=== PATIENT | female | born 1990 | race Asian ===

== ENCOUNTER 2019-09-08 22:43 | Inpatient (IN) | payer OTHER ==
[2019-09-09] MEDS ORDERED: ceFOXitin 2 GM IVPREMIX* 2 GM/50 ML BAG ONE (00:11)
[2019-09-09] MEDS ORDERED: Sodium Citrate/Citric Acid* 15 ML UDC ONE (00:11)
[2019-09-09] MEDS ORDERED: fentaNYL* 50 MCG/ML 2 ML VIAL (100 MCG VIAL) ONE (00:13)
[2019-09-09] MEDS ORDERED: Morphine PF AMP (0.5MG/ML)* 5 MG/10 ML AMP ONE (00:13)
[2019-09-09] MEDS ORDERED: EPHEDrine (Pressors)* 50 MG/ML VIAL ONE (00:27)
[2019-09-09] MEDS ORDERED: OXYTOCIN* 10 UNITS/ML 1 ML VIAL ONE ×2 (00:30)
[2019-09-09] MEDS ORDERED: Ondansetron INJ* 2 MG/ML VIAL ONE ×2 (00:50→01:30)
[2019-09-09] MEDS ORDERED: Metoclopramide IV* 5 MG/ML 2 ML VIAL ONE (01:30)
[2019-09-09] MEDS ORDERED: Acetaminophen IV 1GM/100ML * 1,000 MG/100 ML VIAL IVPB ONE (01:41)
[2019-09-09] MEDS ORDERED: Naloxone* 0.4 MG/ML 1 ML VIAL IV PRN (01:41)
[2019-09-09] MEDS: Ketorolac INJ* 30 MG/ML 1 ML VIAL IV PRN ×3 (02:35→15:45)
[2019-09-09] MEDS ORDERED: Witch Hazel PAD* JAR TOPICAL PRN (02:50)
[2019-09-09] MEDS ORDERED: Methylergonovine INJ* 0.2 MG/ML 1ML AMP IM ONE (02:50)
[2019-09-09] MEDS ORDERED: oxyCODONE TAB* 5 MG TAB PO PRN ×2 (02:50)
[2019-09-09] MEDS ORDERED: Lactated Ringers 1000 ML Bag* 1,000 ML IV SCH (03:00)
--- NOTE | 2019-09-09 03:14 | HP ---
General Information - Reason for Visit Pt presents at 39+6 with ctx about every 5-7 min that are getting more uncomfortable. Reports ctx for several hours last night that resolved in the AM. uncomplicated. - General Information Maternal Age: 28 Grav: 1 Para: 0 SAB: 0 IEA: 0 Estimated Due Date: 09/09/19 Determined By: LMP Maternal Blood Type and Rh: A Positive - Results this Serology/RPR Result: Non-Reactive Rubella Result: Immune HBsAg Result: Negative HIV Result: Negative GBS Culture Result: Positive Past Medical History Delivery History: See Records Pertinent Past Medical History: See Records Pertinent Past Surgical History: None Pertinent Family History: Non-Contributory - Antepartal Records Antepartal Records: Reviewed, Uncomplicated Review of Systems Constitutional: Uncomfortable CV Complaint: No Respiratory: Shortness of Breath: No Gastrointestinal: No Nausea/Vomiting Genitourinary: No Bleeding, No Leaking Fluid Musculoskeletal: Contractions Neurological: No Headache Movement: Normal Exam Allergies/Adverse Reactions: Allergies No Known Allergies Allergy (Verified 09/08/19 23:19) normal, afebrile - Measurements Height: 5 ft 6 in Weight: 150 lb Weight in lbs: [id number] Body Mass Index (BMI): 24.2 Pre- Weight: 114 lb 10.246 oz Weight Gained This : 35.359 lbs and 0.010 ozs - Exam Breast: Breast Exam Deferred Heart: Normal Rhythm/Heart Sounds HEENT: No Significant Findings Lungs: Clear Bilaterally - Abdominal Exam Abdomen Exam: Non-Tender, Fundal Height Consistent with Dates - Ultrasound/Biophysical Profile Ultrasound Status: Bedside Exam Targeted Exam Findings Cervical Exam: 2cm Effacement: 60% Station: -2 Presenting Part: Vertex Membrane Status: Intact EFM Findings - External Monitor Findings Baseline Heart Rate: 145 External Monitor Findings: Accelerations Present, Variability Moderate, Variability Minimal Contractions: Regular, Moderate Contraction Frequency: q5 Assessment/Plan - Assessment Pt presented at about 2300 with moderate ctx. FHT about 145 bpm with minimal variability which improved to moderate with accels over the next half hour. No decels at that time. At 2346, FHR had sudden decline into the 60s and then nurses were unable to locate the FHR. I was called and immediately located the heart rate in the 60s with ultrasound. Decision was made to proceed with an urgent , however pt did not even have IV access yet. Anesthesia, NICU and surgical elastic knitter hand frame were all called while IV was being placed. consent quickly discussed and signed. FHR slowly recovered into the 100s after about 15 min, just before she was brought to the OR. Initially planned to use general anesthesia, but in OR, FHR had recovered to the 150s with moderate variability. Fetus allowed to recover in utero and spinal placed quickly by anesthesia. - Obstetrical Risk Factors Obstetrical Risk Factors: GBS Positive - Plan Plan: Expedite C/S Delivery - Date/Time of Admission Date of Admission: 09/08/19 Time of Admission: 23:45
[2019-09-09] MEDS ORDERED: Ferrous Gluconate TAB* 324 MG TAB PO SCH (09:00)
[2019-09-09] MEDS: Simethicone TAB* 80 MG TAB.CHEW PO SCH ×4 (10:10→21:00)
[2019-09-09] MEDS: Docusate CAP* 100 MG PO SCH ×3 (10:10→21:00)
--- NOTE | 2019-09-09 10:13 | OP ---
DATE OF OPERATION: 09/09/19 - ROOM #ICU-102 DATE OF : 88 SURGEON: Shamar Cormier MD EX CHEF: Jennifer Ayers MD ANESTHESIA: Spinal. PRE-OP DIAGNOSES: Forty weeks gestation in early labor with prolonged heart rate deceleration. POST-OP DIAGNOSES: Forty weeks gestation in early labor with prolonged heart rate deceleration. OPERATIVE PROCEDURE: Primary low-transverse section. ESTIMATED BLOOD LOSS: 700 cc. URINE OUTPUT: 700 cc. IV FLUIDS: 1500 cc lactated Ringer's. MATERIALS TO LAB: Cord blood and cord gases. INDICATIONS: This patient is a 28-year-old 1, para 0, who presented just before midnight at 39 plus 6 weeks gestation, reporting contractions about every 5 minutes, which were moderately strong and persistent for the last 2 hours. Her cervix on presentation was 1 to 2 cm dilated. The heart racing was noted to have minimal to slightly moderate variability initially, however, during observation the heart tracing had a moderate variability and actually had a couple of accelerations. The heart tracing was noted to abruptly decrease to the 60s, at which point the nurses had difficulty finding the heart rate partly because it was so low. I was contacted and when I arrived in the room I immediately did an ultrasound which confirmed that the heart rate was in the 60s. At that point, the patient was only being observed in a triage room, so she did not have IV access. While IV access was being obtained urgently, anesthesia, neonatology, and a surgical garment fitter were called for. The anesthesiologist arrived quickly and the patient was brought to the operating room. Just before being brought back to the operating room the heart racing had been slowly recovering to the 100s. In the OR the heart rate was in the 140s and 150s. Considering it appeared to have recovered, the decision was made to allow the fetus to continue recovering for a little bit longer and also allow the patient to have a spinal anesthetic rather than requiring general anesthesia, which could also be traumatic for the fetus. The patient was briefly counseled in her labor room and consent was signed. FINDINGS: Normal-appearing uterus fallopian tubes and ovaries. Delivery is productive of a 5 pounds 4 ounces female infant with Apgars of 3 and 8. Of note , on entry into the uterine cavity there was scant amniotic fluid present. The placenta appeared to be quite small, but there is no visible adherent clot on the placenta. COMPLICATIONS: None. DESCRIPTION OF PROCEDURE: The risks, benefits, and alternatives were described to the patient and informed consent was obtained. The patient was taken to the operating room with IV running where spinal anesthesia was induced and found to be adequate. The patient was prepped and draped in the normal sterile fashion in the dorsal supine position with leftward tilt. A Pfannenstiel skin incision was made with a scalpel and this was carried down to the underlying fascia sharply. The fascia was then scored in the midline with the scalpel. The incision was extended using Gill scissors. The rectus muscles were dissected off the rectus fascia using blunt and sharp dissection. The rectus muscles were in the midline bluntly. The peritoneum was also entered bluntly. A bladder blade was placed. A bladder flap was created sharply using Metzenbaum scissors. A low transverse uterine incision was made with the scalpel. This was carried down to the amniotic cavity which was productive of clear fluid. The incision was extended with blunt traction. The head was elevated to the level of the incision without difficulty and delivered through the incision. With fundal pressure, the shoulders and body delivered without difficulty. The infant had an excellent tone and cried immediately on delivery. The cord was doubly clamped and cut. The infant was then handed to the awaiting programs director. Cord blood was collected. The placenta then delivered with manual extraction. The uterus was then exteriorized and cleared of all clots and debris. Uterine incision was reapproximated using 0 Polysorb in a running-locked fashion. A second layer of imbricating sutures of 0 Polysorb was also placed with good hemostasis. The posterior cul-de-sac was irrigated with saline. The uterus was then returned to the abdomen, and the incision was reinspected and noted to be hemostatic. The peritoneum was closed with 2-0 chromic in a running fashion. The fascia was closed with 0 Polysorb in a running fashion. Subcutaneous tissues were reapproximated using 2-0 chromic and interrupted sutures. The skin was then closed with 4-0 Monocryl in a subcuticular stitch. Mastisol and Steri-Strips were placed over the incision which was then covered with a sterile bandage. The patient tolerated the procedure well. Sponge, lap, and needle counts were correct x2. [id number]/[facility] #: [id number] [facility] MEDICAL CENTERMaria Luisa
[2019-09-09 13:36] LABS: ABS Lymphocytes 1.4 10^3/ul (1.0-4.8); ABS Monocytes 0.6 10^3/ul (0-0.8); Eosinophil % 0.1 %; Hematocrit 32 % (35-47); Hemoglobin 11.1 g/dL (12.0-16.0); Lymphocyte % 11.8 %; Mean Corpuscular HGB Conc 34 g/dL (31-36); Mean Corpuscular Hemoglobin 34 pg (27-31); Mean Corpuscular Volume 99 fL (80-97); Mean Platelet Volume 8.9 fL (7.4-10.4); Platelet Count 161 10^3/uL (150-450); Red Blood Count 3.26 10^6 /uL (3.70-4.87); Red Cell Distribution Width 14 % (10-15); White Blood Count 12.1 10^3/uL (3.5-10.8)
[2019-09-09] MEDS: Ibuprofen TAB* 600 MG PO SCH (18:00)
[2019-09-10 06:32] LABS: ABS Lymphocytes 1.8 10^3/ul (1.0-4.8); ABS Neutrophils 10.7 10^3/ul (1.5-7.7); Eosinophil % 0.2 %; Hematocrit 30 % (35-47); Hemoglobin 10.2 g/dL (12.0-16.0); Lymphocyte % 13.5 %; Mean Corpuscular HGB Conc 34 g/dL (31-36); Mean Corpuscular Hemoglobin 35 pg (27-31); Mean Corpuscular Volume 101 fL (80-97); Mean Platelet Volume 8.6 fL (7.4-10.4); Platelet Count 153 10^3/uL (150-450); Red Blood Count 2.95 10^6 /uL (3.70-4.87); Red Cell Distribution Width 14 % (10-15); White Blood Count 13.6 10^3/uL (3.5-10.8)
[2019-09-10] MEDS: Ibuprofen TAB* 600 MG PO SCH ×4 (07:10→19:39)
[2019-09-10] MEDS: Docusate CAP* 100 MG PO SCH ×3 (08:22→22:49)
[2019-09-10] MEDS: Simethicone TAB* 80 MG TAB.CHEW PO SCH ×4 (08:22→22:49)
--- NOTE | 2019-09-10 12:29 | PTEDU ---
Patient Name: MICHAEL JONES ROBERT MICHAEL selected video: Never Ever Shake a Baby to view on 09/10/2019 at 12:28:42 PM from [id number]
--- NOTE | 2019-09-10 12:57 | PTEDU ---
Patient Name: MICHAEL JONES ROBERTMICHAEL selected video: BBOB: Nurturing Your Gorgeous &Growing Baby by to view on at 12:56:42 PM [id number]
[2019-09-10] MEDS: Acetaminophen TAB* 325 MG PO PRN ×3 (13:06→22:49)
[2019-09-11] MEDS: Ibuprofen TAB* 600 MG PO SCH ×4 (02:50→21:59)
[2019-09-11] MEDS: Acetaminophen TAB* 325 MG PO PRN (02:50)
--- NOTE | 2019-09-11 08:46 | PN ---
Progress Note - Progress Note Date of Service: 09/11/19 Note: POD#2 s/p pLTCS 2/2 NRFHT remote from delivery. Doing well post operatively. Tolerating regular diet, up and ambulating, pain appropriately controlled. + spontaneous void, + flatus. O: Temp Pulse Resp BP Pulse Ox 98.2 F 69 16 100/66 99 09/10/19 20:09 09/10/19 20:09 09/10/19 20:09 09/10/19 20:09 09/10/19 20:09 AVSS, afebrile, hemodynamically stable Gen: nad, aaox3 CV: RRR Pulm: CTABL Abd: soft, nd, nttp, no rebound, no guarding, FF below the U Incision: c/d/i with sutures and steris Ext: warm, nttp A/P: POD#2 s/p pLTCS at term 2/2 NRFHT, doing well post op: - Continue regular diet, tolerting, + flatus - Pain appropriately controlled, continue PO pain regimen - - continue to support - RH+/RI - Continue routine post care, anticipate discharge home tomorrow
[2019-09-11] MEDS: Docusate CAP* 100 MG PO SCH ×3 (08:54→21:59)
[2019-09-11] MEDS: Simethicone TAB* 80 MG TAB.CHEW PO SCH ×4 (08:54→21:59)
--- NOTE | 2019-09-11 21:02 | PTEDU ---
Patient Name: MICHAEL JONES ROBERTMICHAEL selected video: BBOB: Bonding Through Massage to view on 09/11/2019 at 9:01:25 PM f rom [id number]
--- NOTE | 2019-09-11 21:33 | PTEDU ---
Patient Name: MICHAEL JONES ROBERTMICHAEL selected video: Follow Me Mum: [facility] [place] [facility] to view on 09/11/2019 a t 9:32:42 PM [id number]
[2019-09-12] MEDS: Ibuprofen TAB* 600 MG PO SCH ×2 (04:14→10:25)
[2019-09-12 08:01] VITALS: BP 111/68
[2019-09-12] MEDS: Docusate CAP* 100 MG PO SCH (10:25)
[2019-09-12] MEDS: Simethicone TAB* 80 MG TAB.CHEW PO SCH (10:26)
== END 2019-09-12 15:37 | disposition home or self-care (01) | DRG 788 ==
LOC: MCHOBOUT 22:43 → MCHOB 23:59
PROVIDERS: ADMIT Obstetrics & Gynecology; ATTEND Obstetrics & Gynecology
PROC: 10D00Z1 Extraction of Products of Conception, Low, Open Approach (ICD-10-PCS; principal; 2019-09-09 00:05)
DX: O99.824 Streptococcus B carrier state complicating childbirth (principal); O76 Abnormality in fetal heart rate and rhythm complicating labor and delivery; O77.0 Labor and delivery complicated by meconium in amniotic fluid; Z3A.40 40 weeks gestation of pregnancy; Z37.0 Single live birth
CPT/HCPCS: 36415; 85025; A9270-GY; J0694; J1885; J2210; J2405; J2590; J2765; J3010

== ENCOUNTER 2019-09-19 15:20 | Emergency (ER) | payer OTHER ==
--- NOTE | 2019-09-19 15:32 | ED ---
ED Suture/Wound Check - HPI Summary HPI Summary: 28 year old F presenting to [facility] with a chief complaint of her incision re-opening earlier today after taking off her steri-strips on her own. Patient reports that her vaginal bleeding increased last night. The patient rates the pain 0/10 in severity. Symptoms aggravated by nothing. Symptoms alleviated by nothing. The patient's was on September 08. Patient denies any fever, chills, nausea, or vomiting. She is followed by MADIE Yusuf. Medication list reviewed. Allergy list reviewed. Home Medications Medication Instructions Recorded Confirmed Type Tablet 1 tab PO DAILY 09/08/19 09/19/19 History - History Of Current Complaint Stated Complaint: GENERAL Time Seen by Provider: 09/19/19 15:22 Hx Obtained From: Patient Onset/Duration: Sudden Onset Pain Intensity: 0 Pain Scale Used: 0-10 Numeric - Allergies/Home Medications Allergies/Adverse Reactions: Allergies Allergy/AdvReac Type Severity Reaction Status Date / Time No Known Allergies Allergy Verified 09/19/19 15:22 Home Medications: Home Medications Tablet 1 tab PO DAILY 09/08/19 [History Confirmed 09/19/19] PMH/Surg Hx/FS Hx/Imm Hx Endocrine/Hematology History: Denies: Hx Diabetes Cardiovascular History: Denies: Hx Hypertension - Surgical History Surgical History: Yes Surgery Procedure, Year, and Place: - Social History Alcohol Use: None Substance Use Type: Reports: None Smoking Status (MU): Never Smoked Tobacco Have You Smoked in the Last Year: No Review of Systems Negative: Fever, Chills Negative: Vomiting, Nausea Positive: other - Increased vaginal bleeding Positive: Other - Open incision All Other Systems Reviewed And Are Negative: Yes Physical Exam - Summary Physical Exam Summary: Constitutional: Well-developed, Well-nourished, Alert. (-) Distressed Skin: Warm, Dry HENT: Normocephalic; Atraumatic Eyes: Conjunctiva normal Neck: Musculoskeletal ROM normal neck. (-) JVD, (-) Stridor, (-) Tracheal deviation Cardio: Rhythm regular, rate normal, Heart sounds normal; Intact distal pulses; Radial pulses are 2+ and symmetric. (-) Murmur Pulmonary/Chest wall: Effort normal. (-) Respiratory distress, (-) Wheezes, (-) Rales Abd: Soft, (-) tenderness, (-) Distension, (-) Guarding, (-) Rebound, Pfannenstiel incision is intact outside of 1 cm area where there appears to be fresh blood, obvious surrounding abdominal wall hematoma, no fluctuance or induration, no tenderness to palpation. Musculoskeletal: (-) Edema Lymph: (-) Cervical adenopathy Neuro: Alert, Oriented x3 Psych: Mood and affect Normal Triage Information Reviewed: Yes Vital Signs Reviewed: Yes Procedures - Sedation Patient Received Moderate/Deep Sedation with Procedure: No Diagnostics - Laboratory Result Diagrams: 09/19/19 15:41 09/19/19 15:41 Lab Statement: Any lab studies that have been ordered have been reviewed, and results considered in the medical decision making process. Course/Dx - Course Course Of Treatment: Patient is here with slight dehiscence of her Pfannenstiel incision after removing her Steri-Strips at home today. Patient did have a small abdominal wall hematoma on exam but she was not tender, there is no purulent drainage, and she is overall well-appearing. I do not believe patient' s hematoma is infected. Patient had a CBC performed to evaluate for anemia which showed no change from her baseline. Patient had no active bleeding while in the ED. Patient had Steri-Strips applied to her incision. ANNEALING FURNACE OPERATOR was called and they recommended discharge. - Clinical Impression Provider Diagnoses: Wound dehiscence, Abdominal wall hematoma - Physician Notifications Discussed Care Of Patient With: Jennifer Ayers Time Discussed With Above Provider: 17:00 Instructed by Provider To: Other - Discussed with Dr. Ayers who said that the patient is okay to be discharged. Discharge ED - Sign-Out/Discharge Documenting (check all that apply): Patient Departure - Discharge Plan Condition: Stable Disposition: HOME Patient Education Materials: Wound Dehiscence (ED), Hematoma (ED) Referrals: Shamar Cormier MD [Medical Doctor] - 3 Days Additional Instructions: Follow-up with Dr. Cormier in 1-3 days. Return to the emergency department for any fever, chills, worsening abdominal pain, or any other concerning symptoms. - Billing Disposition and Condition Condition: STABLE Disposition: Home - Attestation Statements Document Initiated by Scribe: Yes Documenting Scribe: Yeimy Spencer Provider For Whom Scribe is Documenting (Include Credential): Ruslan Turner MD Scribe Attestation: I, Yeimy Spencer, scribed for Ruslan Turner MD on 09/19/19 at 1718. Scribe Documentation Reviewed: Yes Provider Attestation: The documentation as recorded by the [email or web address] rivera accurately reflects the service I personally performed and the decisions made by me, Ruslan Turner MD Status of Scribe Document: Viewed
[2019-09-19 15:48] LABS: ABS Basophils 0.1 10^3/ul (0-0.2); ABS Eosinophils 0.1 10^3/ul (0-0.6); ABS Lymphocytes 1.5 10^3/ul (1.0-4.8); ABS Monocytes 0.6 10^3/ul (0-0.8); ABS Neutrophils 2.8 10^3/ul (1.5-7.7); Eosinophil % 1.5 %; Hematocrit 33 % (35-47); Hemoglobin 11.5 g/dL (12.0-16.0); Lymphocyte % 30.6 %; Mean Corpuscular HGB Conc 35 g/dL (31-36); Mean Corpuscular Hemoglobin 34 pg (27-31); Mean Corpuscular Volume 99 fL (80-97); Mean Platelet Volume 6.9 fL (7.4-10.4); Platelet Count 331 10^3/uL (150-450); Red Blood Count 3.37 10^6 /uL (3.70-4.87); Red Cell Distribution Width 14 % (10-15); White Blood Count 5.1 10^3/uL (3.5-10.8)
[2019-09-19 16:08] LABS: BUN/Creatinine Ratio 22.5 (8-20); Calcium 8.9 mg/dL (8.6-10.3); EGFR African American 102.6 (>60); EGFR Non-African American 84.8 (>60); Potassium 3.7 mmol/L (3.5-5.0)
--- OUTSIDE RECORDS SUMMARY | 2019-09-19 16:25 | XMS REPORT | Continuity of Care Document ---
:1990 External Reference #:[id number] Author Name Shamar Cormier MD (transmitted by agent of provider Kera Hernandez) Address [address] [facility] [place] [address] Problems Description No Information Available Social History Type Date Description Comments Sex Unknown Cigarette Use Does Not Smoke Cigarettes ETOH Use Does Not Drink Alcohol Recreational Drug Use Does Not Use Drugs Seat Belt/Car Seat Always uses seat belt Allergies, Adverse Reactions, Alerts Description No Known Drug Allergies Medications Active Medications SIG Qnty Indications Ordering Provider Date 1 by mouth every Unknown Tablets day Calcium 600+D 1 by mouth twice Unknown a day [id number] Tablets Immunizations CPT Code Status Date Vaccine Lot # [id number] Given 08/05/2019 Tetnus, Diptheria Toxoids And Acellular Pertussis, [id number] PT > 7Yrs Old [id number] Given 04/02/2019 Influenza Vaccine Quadrivalent Preser/Antibiotic [id number] Free Im Use Vital Signs Date Vital Result Comment 02/14/2019 8:15am BP Systolic 94 mmHg BP Diastolic 62 mmHg Height 63.75 inches 5'3.75" Weight 116.00 lb BMI (Body Mass Index) 20.1 kg/m2 Last Menstrual Period [id number] Results Test Acquired Date Facility Test Result H/L Range Note Laboratory test 08/19/2019 [facility] Genital For SEE RESULT 1 [place] [address] GRP B Strep BELOW [phone] Only Laboratory test 06/17/2019 [facility] Glucose 1 HR 116 mg/dL Normal 70-160 2 [place] [address] Post Prandial [phone] CBC With No 06/17/2019 [facility] White Blood 8.2 Normal 3.5- 10.8 [place] [address] Count 10^3/uL [phone] Red Blood Count 3.24 10^6/uL Low 3.70-4.87 Hemoglobin 11.2 g/dL Low 12.0-16.0 Hematocrit 32 % Low 35-47 Mean Corpuscular Volume 99 fL High 80-97 Mean Corpuscular Hemoglobin 35 pg High 27-31 Mean Corpuscular HGB Conc 35 g/dL Normal 31-36 Red Cell Distribution Width 13 % Normal 10-15 Platelet Count 215 10^3/uL Normal 150-450 Mean Platelet Volume 8.6 fL Normal 7.4-10.4 Drug Screen 04/30/2019 [facility] Urine None Detected None [place] [address] Hydrocodone [facility] [phone] Screen Urine Oxycodone Screen None Detected None Detect Urine Fentanyl Screen None Detected None Detect Urine Methadone Screen None Detected None Detect Urine Buprenorphine Screen None Detected None Detect Urine Amphetamine Screen None Detected None Detect Urine Barbiturates Screen None Detected None Detect Urine Benzodiazepine Screen None Detected None Detect Urine Cannabinoids Screen None Detected None Detect Urine Cocaine Screen None Detected None Detect Urine Opiates Screen None Detected None Detect Urine Phencyclidine Screen None Detected None Detect 3 Test In Question- Missing Required 04/04/2019 [facility] Comment (SEE NOTE) 4 Info Missing Info: [id number] INTE <SEE NOTE> 5 Comment (SEE NOTE) 6 Laboratory test 04/04/2019 [facility] Enhanced PDF Report SEE IMAGE finding [id number] Urine Drug Comp 20 04/02/2019 [facility] Urine Amphetamine Negative ng/mL 7 [place] [address] [phone] Urine Barbiturates Negative ng/mL 8 Urine Benzodiazepines Negative ng/mL 9 Urine Cocaine Negative ng/mL 10 Urine Phencyclidine Negative ng/mL Cutoff: 25 Urine Tetrahydrocannabinol Negative ng/mL Cutoff: 50 11 Creatinine, Urine 114.8 mg/dL Specific [place] 1.012 pH 6.4 Oxidants Negative 12 Adulterants Comment Normal Codeine, Ur Not Detected ng/mL Cutoff: 25 13 Nejjoiv-6-bpkw-glucuronide, Ur Not Detected ng/mL 14 Morphine, Ur Not Detected ng/mL Cutoff: 25 15 Lqwggdvv-1-hdbj-glucuronide, U Not Detected ng/mL 16 6-monoacetylmorphine, Ur Not Detected ng/mL Cutoff: 25 17 Hydrocodone, Ur Not Detected ng/mL Cutoff: 25 18 Norhydrocodone, Ur Not Detected ng/mL Cutoff: 25 19 Dihydrocodeine, Ur Not Detected ng/mL Cutoff: 25 20 Hydromorphone, Ur Not Detected ng/mL Cutoff: 25 21 Bxvdhytklrdmk0ikppuhxukxmtpjq Not Detected ng/mL 22 Oxycodone, Ur Not Detected ng/mL Cutoff: 25 23 Noroxycodone, Ur Not Detected ng/mL Cutoff: 25 24 Oxymorphone, Ur Not Detected ng/mL Cutoff: 25 25 Zlzbaslitoz-6-hner-glucuronide Not Detected ng/mL 26 Noroxymorphone, Ur Not Detected ng/mL Cutoff: 25 27 Fentanyl, Ur Not Detected ng/mL Cutoff: 2 28 Norfentanyl, Ur Not Detected ng/mL Cutoff: 2 29 Meperidine, Ur Not Detected ng/mL Cutoff: 25 30 Normeperidine, Ur Not Detected ng/mL Cutoff: 25 31 Naloxone, Ur Not Detected ng/mL Cutoff: 25 32 Orokynxi-1-tqvs-glucuronide, U Not Detected ng/mL 33 Methadone, Ur Not Detected ng/mL Cutoff: 25 34 Eddp, Ur Not Detected ng/mL Cutoff: 25 35 Propoxyphene, Ur Not Detected ng/mL Cutoff: 25 36 Norpropoxyphene, Ur Not Detected ng/mL Cutoff: 25 37 Tramadol, Ur Not Detected ng/mL Cutoff: 25 38 O-desmethyltramadol, Ur Not Detected ng/mL Cutoff: 25 39 Tapentadol, Ur Not Detected ng/mL Cutoff: 25 40 N-desmethyltapentadol, Ur Not Detected ng/mL Cutoff: 50 41 Dbuvpcpkep-bxeu-mgftpkgbtrd, U Not Detected ng/mL 42 Buprenorphine, Ur Not Detected ng/mL Cutoff: 5 43 Norbuprenorphine, Ur Not Detected ng/mL Cutoff: 5 44 Norbuprenorphine glucuronide Not Detected ng/mL Cutoff: 20 45 Opioid Interpretation See Comment 46 Serum Integrated Screen, 04/01/2019 [facility] Interpretation: SEE NOTE 47, 48 Part 2([place]) Risk for Ontd <1:5000 Age Risk Down Syndrome 1:780 PALLAVI Down Syndrome Risk <1:5000 <1:270 PALLAVI Trisomy 18 Risk <1:5000 <1:100 Calc'd Gestational Age 17.0 Afp, Serum 41.1 ng/mL Afp MoM 0.92 49 hCG, Serum 30.7 IU/mL hCG MoM 0.83 Estriol, Free 1.82 ng/mL Estriol MoM 1.61 Inhibin A, Dimeric 104 pg/mL Inhibin A MoM 0.54 Dinorah-A 1585.6 ng/mL 50 Dinorah-A MoM 0.88 51 Referring Physician Name CASSANDRA LARA Referring Physician Phone NOT GIVEN Referring Physician Npi [phone] Specimen # from Part 1 [id number] Date of 1990 Collection Date 04/01/2019 Maternal Weight 116 lbs Est'd Date of Delivery 09/09/2019 Mother's Ethnic Origin Insulin Depend Diabetic NO Repeat Specimen NO Number of Fetuses 1 Hx Of Neural Tube Defects NO Cigarette smoker NOT GIVEN 52 Laboratory test finding 04/01/2019 [facility] Enhanced PDF Report SEE IMAGE [id number] 1 SEE RESULT BELOW Name: KARISSA JONES : [address]: Leno Hayes MD Acct: [id number] Unit: [id number] AGE: 28 Location: [facility] Re08/19/19 SEX: F Status: REG REF SPEC: [id number] MARYAM: 08/19/19-[address]: Leno Hayes MD REQ: [id number] RECD: 08/19/198614 STATUS: COMP _ SOURCE: CER/VAG/RE SPDESC: ORDERED: Maura Almeida COMMENTS: [id number] QUERIES: Is Patient Penicillin Allergic? N Is patient penicillin allergic and/or sensitivities needed? N Provider Requisition # [id number] Procedure Result Reported Site Group B Strep Culture Screen Final 08/21/19- 0945 ML Group B Strep Screen Positive Organism 1 STREP GROUP B Susceptibility testing of penicillins and other B-lactams approved by FDA for treatment of Streptococcus pyogenes (Group A Strep) and Streptococcus agalactiae (Group B Strep) is not necessary for clinical purposes and need not be done routinely, since as with vancomycin, resistant strains have not been recognized. (CLSI K873-B82;p.66) Positive isolates will be saved for one week. Please call the Microbiology Laboratory if further susceptibility testing is needed. * [facility] - Main Lab . END OF REPORT DEPARTMENT OF PATHOLOGY, [address] [place] [address] Neville Mccray M.D. Director [facility] # [id number] 2 [id number] The specimen was tested at the listed cutoffs: Drug Class Test level (ng/mL) Hydrocodone 300 Oxycodone 100 Fentanyl 1 Methadone 150 Buprenorphine 5 Amphetamines 500 Barbiturates 200 Benzodiazepines 200 Cocaine 150 Cannabinoids 50 Opiates 300 PCP 25 Specimen was received without chain of custody. Results should be used for medical purposes only. 4 We are unable to complete the test(s) noted below due to missing required information. 5 [id number] INTEGRA PT2([place] Draw Date: 6 To prevent further delays in testing, please fax back your resolution to [phone] or contact us immediately at . NO COLLECTION DATE RECEIVED. WE HAVE USED THE DATE THE SPECIMEN WAS RECEIVED BY THIS LABORATORY THE COLLECTION DATE. IF THIS IS INCORRECT, PLEASE CONTACT CLIENT SERVICES. PHONE NUMBER: [phone] 7 REFERENCE VALUE Cutoff: 500 8 REFERENCE VALUE Cutoff: 200 9 REFERENCE VALUE Cutoff: 100 10 REFERENCE VALUE Cutoff: 150 11 ADDITIONAL INFORMATION This report is intended for use in clinical monitoring or management of patients. It is not intended for use in employment-related testing. Test Performed by: [facility] [address] [place] [address] [place] Certified Technician: Mushtaq Chang M.D. Ph.D.; CLIA# [id number] 12 REFERENCE VALUE Cutoff: 200 mg/L 13 Tylenol 3 14 Metabolite of codeine REFERENCE VALUE Cutoff: 100 15 Shiela Contreras, MS Contin; Also a minor metabolite (10%) of codeine and can be seen in low concentrations (<2,000 ng/mL) with poppy seed ingestion. 16 Metabolite of morphine REFERENCE VALUE Cutoff: 100 17 Metabolite of heroin 18 Lortab, [place], Vicodin; Also a very minor metabolite of codeine and impurity (<1%) of oxycodone. 19 Metabolite of hydrocodone 20 Metabolite of hydrocodone 21 Dilaudid, Exalgo; Also a metabolite of hydrocodone and a minor (<5%) metabolite of morphine. 22 Metabolite of hydromorphone REFERENCE VALUE Cutoff: 100 23 Endocet, Percocet, Oxycontin 24 Metabolite of oxycodone 25 Numorphan, Opana; Also a metabolite of oxycodone. 26 Metabolite of oxymorphone REFERENCE VALUE Cutoff: 100 27 Metabolite of oxymorphone 28 Actiq, Duragesic, Fentora 29 Metabolite of fentanyl 30 Demerol 31 Metabolite of meperidine 32 Narcan 33 Metabolite of naloxone REFERENCE VALUE Cutoff: 100 34 Dolophine 35 Metabolite of methadone 36 Darvon, Darvocet 37 Metabolite of propoxyphene 38 Tradol, Ultram, Ultracet 39 Metabolite of tramadol 40 Nucynta 41 Metabolite of tapentadol 42 Metabolite of tapentadol REFERENCE VALUE Cutoff: 100 43 Buprenex, Suboxone 44 Metabolite of buprenorphine 45 Metabolite of buprenorphine 46 No opioids were detected. The absence of expected drug(s) and/or drug metabolite(s) may indicate non-compliance, altered pharmacokinetics, inappropriate timing of specimen collection relative to drug administration, diluted/adulterated urine, or limitations of testing. ADDITIONAL INFORMATION This test was developed and its performance characteristics determined by [facility] in a manner consistent with CLIA requirements. This test has not been cleared or approved by the U.S. Food and Drug Administration. 47 FASTING: NO 48 SCREEN NEGATIVE FOR OPEN NTD, DOWN SYNDROME AND TRISOMY 18. 49 Reference Range: <2.50 IDD <1.90 TWINS <4.00 TWINS IDD <3.50 TRIPLETS <4.50 50 This test was performed using a kit that has not been cleared or approved by the FDA. The analytical performance characteristics of this test have been [facility]. This test should not be used for diagnosis without confirmation by other medically established means. 51 The Serum Integrated Screen combines DINORAH-A in the first trimester with AFP, unconjugated estriol, intact hCG and Inhibin A in the second trimester. This provides a useful screening test for detection of open neural tube defects, Down syndrome and Trisomy 18. It should be noted that normal results can never guarantee the of a normal baby and that 2 to 3 percent of newborns have some type of physical or mental defect, many of which are undetectable through any known diagnostic technique. Interpretation reviewed by: Dorothy Mckeon, Ph.D., [facility]. 52 This is a screening test, not a diagnostic test. This risk assessment is based on demographic data provided by the ordering physician. Please notify the laboratory promptly if any data are incorrect. It has been observed that patients who smoke cigarettes during may have a slightly increased risk of having a false positive PALLAVI screen for Down Syndrome or trisomy 18. If you have questions concerning this report: For clinical consultation, call ; For technical questions, call ext [phone]; For recalculations, fax to . For additional information, please refer to [email or web address] (This link is being provided for informational/educational purposes only.) Procedures Date Code Description Status 04/30/2019 98078 Echography Uterus Complete Completed Medical Devices Description No Information Available Encounters Description No Information Available Assessments Date Code Description Provider 09/03/2019 Z34.03 Encounter for supervision of normal first Shamar Cormier MD , third trimester 08/26/2019 Z34.03 Encounter for supervision of normal first Shamar Cormier MD , third trimester 08/19/2019 Z34.83 Encounter for supervision of other normal Leno Hayes M.D. , third trimester 08/05/2019 Z34.03 Encounter for supervision of normal first Shamar Cormier MD , third trimester 08/05/2019 Z23 Encounter for immunization Phaelon Cormier, MD 07/21/2019 Z34.83 Encounter for supervision of other normal Cassandra Lara JR, DO , third trimester 07/02/2019 Z34.83 Encounter for supervision of other normal Leno Hayes M.D. , third trimester 06/17/2019 Z36.9 Encounter for screening, Blanca Xiong MD unspecified 06/17/2019 Z36.9 Encounter for screening, Laboratory unspecified 06/17/2019 Z34.82 Encounter for supervision of other normal Leno Hayes M.D. , second trimester 05/28/2019 Z34.02 Encounter for supervision of normal first Cassandra Lara JR, DO , second trimester 04/30/2019 Z36.3 Encounter for screening for Shamar Cormier MD malformations 04/30/2019 Z34.02 Encounter for supervision of normal first Shamar Cormier MD , second trimester 04/30/2019 Z36.3 Encounter for screening for Ultrasounds malformations 04/02/2019 Z36.9 Encounter for screening, Leno Hayes M.D. unspecified 04/02/2019 Z36.9 Encounter for screening, Laboratory unspecified 04/02/2019 Z34.02 Encounter for supervision of normal first Cassandra Lara JR, DO , second trimester 04/02/2019 Z23 Encounter for immunization Cassandra Lara JR, DO Plan of Treatment Future Appointment(s):09/10/2019 11:00 am - Cassandra Lara JR, DO at [facility] Functional Status Description No Information Available Mental Status Description No Information Available Referrals Description No Information Available
--- OUTSIDE RECORDS SUMMARY | 2019-09-19 16:25 | XMS REPORT | Continuity of Care Document ---
:1990 External Reference #:[id number] Author Name Shamar Cormier MD Address [address] [place] [address] Problems Description No Information Available Social History [...] 1 by mouth twice Unknown a day [id number] Tablets Immunizations CPT Code Status Date Vaccine Lot # [id number] Given 08/05/2019 Tetnus, Diptheria Toxoids And Acellular Pertussis, [id number] PT > 7Yrs Old [address] Given 04/02/2019 Influenza Vaccine Quadrivalent Preser/Antibiotic [id number] Free Im Use Vital Signs Date Vital Result Comment 02/14/2019 8:15am BP Systolic 94 mmHg BP Diastolic 62 mmHg Height 63.75 inches 5'3.75" Weight 116.00 lb BMI (Body Mass Index) 20.1 kg/m2 Last Menstrual Period [id number] Results Test Acquired Date Facility Test Result H/L Range Note Laboratory test 08/19/2019 [facility] Genital For SEE RESULT [address] [place] [address] GRP B Strep BELOW [phone] Only Laboratory test 06/17/2019 [facility] Glucose 1 HR 116 mg/dL Normal 70-160 [address] [place] [address] Post Prandial [phone] CBC With No 06/17/2019 [facility] White Blood 8.2 Normal 3.5- 10.8 [place] [address] Count 10^3/uL [phone] Red Blood Count 3.24 10^6/uL Low 3.70-4.87 Hemoglobin 11.2 g/dL Low 12.0-16.0 Hematocrit 32 % Low 35-47 Mean Corpuscular Volume 99 fL High 80-97 Mean Corpuscular Hemoglobin 35 pg High 27-31 Mean Corpuscular HGB Conc 35 g/dL Normal 31-36 Red Cell Distribution Width 13 % Normal 10-15 Platelet Count 215 10^3/uL Normal 150-450 Mean Platelet Volume 8.6 fL Normal 7.4-10.4 Drug Screen 04/30/2019 [facility] Urine None Detected [place] [address] Hydrocodone [facility] [phone] Screen Urine Oxycodone Screen None Detected None [...] 3 Test In Question- Missing Required 04/04/2019 [employer] PBL Comment (SEE NOTE) 4 Info Missing Info: [id number] INTE <SEE NOTE> 5 Comment (SEE NOTE) 6 Laboratory test 04/04/2019 [facility] Enhanced PDF Report SEE IMAGE finding [id number] Urine Drug Comp 20 04/02/2019 [facility] Urine Amphetamine Negative ng/mL 7 [place] [address] [phone] Urine Barbiturates Negative ng/mL 8 Urine Benzodiazepines Negative ng/mL 9 Urine Cocaine Negative ng/mL 10 Urine Phencyclidine Negative ng/mL Cutoff: 25 Urine Tetrahydrocannabinol Negative ng/mL Cutoff: 50 11 Creatinine, Urine 114.8 mg/dL Specific [place] 1.012 pH 6.4 Oxidants Negative 12 Adulterants Comment Normal Codeine, Ur Not Detected ng/mL Cutoff: 25 13 Ukxdsow-1-alyz-glucuronide, Ur Not Detected ng/mL 14 Morphine, Ur Not Detected ng/mL Cutoff: 25 15 Eqanqjwp-4-qclb-glucuronide, U Not Detected ng/mL 16 6-monoacetylmorphine, Ur Not Detected ng/mL Cutoff: 25 17 Hydrocodone, Ur Not Detected ng/mL Cutoff: 25 18 Norhydrocodone, Ur Not Detected ng/mL Cutoff: 25 19 Dihydrocodeine, Ur Not Detected ng/mL Cutoff: 25 20 Hydromorphone, Ur Not Detected ng/mL Cutoff: 25 21 Ovryixgvkwjrg3rcljnajcvfsjajx Not Detected ng/mL 22 Oxycodone, Ur Not Detected ng/mL Cutoff: 25 23 Noroxycodone, Ur Not Detected ng/mL Cutoff: 25 24 Oxymorphone, Ur Not Detected ng/mL Cutoff: 25 25 Lizvgbmduel-6-dkdr-glucuronide Not Detected ng/mL 26 Noroxymorphone, Ur Not Detected ng/mL Cutoff: 25 27 Fentanyl, Ur Not Detected ng/mL Cutoff: 2 28 Norfentanyl, Ur Not Detected ng/mL Cutoff: 2 29 Meperidine, Ur Not Detected ng/mL Cutoff: 25 30 Normeperidine, Ur Not Detected ng/mL Cutoff: 25 31 Naloxone, Ur Not Detected ng/mL Cutoff: 25 32 Dbrjngjt-4-yhej-glucuronide, U Not Detected ng/mL 33 Methadone, Ur [...] Ur Not Detected ng/mL Cutoff: 50 41 Hubgjvomxs-zosm-mnbwgtzvmwp, U Not Detected ng/mL 42 Buprenorphine, Ur [...] Dinorah-A MoM 0.88 51 Referring Physician Name MARCOCASSANDRA Referring Physician Phone NOT GIVEN Referring Physician Npi [phone] Specimen # from Part 1 [id number] Date of 1990 Collection Date 04/01/2019 Maternal Weight 116 lbs Est'd Date of Delivery 09/09/2019 Mother's Ethnic Origin Insulin Depend Diabetic NO Repeat Specimen NO Number of Fetuses 1 Hx Of Neural Tube Defects NO Cigarette smoker NOT GIVEN 52 Laboratory test finding 04/01/2019 [facility] Enhanced PDF Report SEE IMAGE [id number] Serum Integrated SCRN 03/06/2019 Comment SEE BELOW 53 Part 1 [place] Referring Physician Name BLU 54 Referring Physician Phone [phone] 55 Referring Physician Npi NG 56 Date Of [id number] Collection Date 58 Maternal Weight 116 lbs 59 Est'd Date Of Delivery [id number] WILIAN Determined By LMP 61 Mother's Ethnic Origin 62 Number Of Fetuses 1 63 Insulin Depend Diabetic NO 64 Repeat Specimen NO 65 HX Of Neural Tube Defects NO 66 Prev Down Synd NO 67 Donor Egg NO 68 Donor Age:Egg Retrieval NG 69 Cigarette Smoker NG 70 Laboratory test 03/06/2019 [facility] Cytology SEE RESULT [address] [place] [address] BELOW [phone] GC/Chlamydia 03/06/2019 [facility] Chlamydia Negative [place] [address] trachomatis Lakesha [phone] Neisseria gonorrhoeae (GC) Lakesha Negative Negative Urine Culture And 03/06/2019 [facility] Urine Culture SEE RESULT [address] [place] [address] BELOW [phone] 1 SEE RESULT BELOW Name: MICHAEL JONES : [address]: Leno Hayes MD Acct: [id number] Unit: [id number] AGE: 28 Location: [facility] Re08/19/19 SEX: F Status: REG REF SPEC: [id number] MARYAM: 08/19/19-[address]: Leno Hayes MD REQ: [id number] RECD: 08/19/19 STATUS: COMP _ SOURCE: SINGH/YURIDIA/RE SPDESC: ORDERED: Maura Cook Scrn COMMENTS: [id number] QUERIES: Is Patient Penicillin Allergic? N Is patient penicillin allergic and/or sensitivities needed? N Provider Requisition # [id number] Procedure Result Reported Site Group B Strep [...] resistant strains have not been recognized. (CLSI G588-H45;p.66) Positive isolates will be saved for one week. Please call the Microbiology Laboratory if further susceptibility testing is needed. * [facility] - Main Lab . END OF REPORT DEPARTMENT OF PATHOLOGY, [address] [place] [address] Neville Mccray M.D. Director [facility] # [id number] 2 [id number] 3 The specimen was tested at the [...] below due to missing required information. 5 [id number]-WMDYE [employer] PT2([place] Draw Date: 6 To prevent further delays in testing, please fax back your resolution to [phone] or contact us immediately at . NO COLLECTION DATE RECEIVED. WE HAVE USED THE DATE THE SPECIMEN WAS RECEIVED BY THIS LABORATORY THE COLLECTION DATE. IF THIS IS INCORRECT, PLEASE CONTACT CLIENT SERVICES. PHONE NUMBER: [phone] 7 REFERENCE VALUE Cutoff: 500 8 REFERENCE VALUE Cutoff: 200 9 REFERENCE VALUE Cutoff: 100 10 REFERENCE VALUE Cutoff: 150 11 ADDITIONAL INFORMATION This report is intended for use in clinical monitoring or management of patients. It is not intended for use in employment-related testing. Test Performed by: [facility] [employer] - [facility] [address] [place] [address] Auto Transmission Specialist: Mushtaq Chang M.D. Ph.D.; CLIA# [id number] 12 REFERENCE VALUE Cutoff: 200 mg/L 13 Tylenol 3 14 Metabolite of codeine REFERENCE VALUE Cutoff: 100 15 Shiela Contreras, MS Contin; Also a minor metabolite (10%) of codeine and can be seen in low concentrations (<2,000 ng/mL) with poppy seed ingestion. 16 Metabolite of morphine REFERENCE VALUE Cutoff: 100 17 Metabolite of heroin 18 Lortab, Manley, Vicodin; Also a very minor metabolite of [...] developed and its performance characteristics determined by [facility] in a manner consistent with CLIA requirements. [...] of this test have been determined by [facility]. This test should not be used for [...] technique. Interpretation reviewed by: Dorothy Mckeon, Ph.D., [facility]. 52 This is a screening test, [...] call ; For technical questions, call ext [phone]; For recalculations, fax to . For additional information, please refer to http://[employer]/faq/FAQ93 (This link is being provided for informational/educational purposes only.) 53 Thank you for submitting this patients Part 1 specimen. Please submit her Part 2 specimen between 03/18/2019-05/12/2019 (15.0 and 22.9 weeks gestation) with 03/18/2019-03/31/2019 (15.0 and 16.9 weeks gestation) being optimal. When submitting Part 2, please include the following Specimen # from Part 1: [id number] This test was developed and its analytical performance characteristics have been [facility]. It has not been cleared or approved by FDA. This assay has been validated pursuant to the CLIA regulations and is used for clinical purposes. For additional information, please refer to http://Blinkit/faq/FAQ91 (This link is being provided for informational/educational purposes only.) It has been observed that patients who smoke cigarettes during may have a slightly increased risk of having a false positive PALLAVI screen for Down Syndrome or trisomy 18. If you have questions concerning this report: For clinical consultation, call ; For technical questions, call ext [phone]; For recalculations, fax to [phone]. 54 For additional information, please refer to http://[employer]link[employer]/faq/FAQ91 (This link is being provided for informational/educational purposes only.) It has been observed that patients who smoke cigarettes during may have a slightly increased risk of having a false positive PALLAVI screen for Down Syndrome or trisomy 18. If you have questions concerning this report: For clinical consultation, call ; For technical questions, call ext [phone]; For recalculations, fax to [phone]. 55 For additional information, please refer to http://[employer]/faq/FAQ91 (This link is being provided for informational/educational purposes only.) It has been observed that patients who smoke cigarettes during may have a slightly increased risk of having a false positive PALLAVI screen for Down Syndrome or trisomy 18. If you have questions concerning this report: For clinical consultation, call ; For technical questions, call ext [phone]; For recalculations, fax to [phone]. 56 For additional information, please refer to http://[employer]/faq/FAQ91 (This link is being provided for informational/educational purposes only.) It has been observed that patients who smoke cigarettes during may have a slightly increased risk of having a false positive PALLAVI screen for Down Syndrome or trisomy 18. If you have questions concerning this report: For clinical consultation, call ; For technical questions, call ext [phone]; For recalculations, fax to [phone]. 57 For additional information, please refer to http://[employer]/faq/FAQ91 (This link is being provided for informational/educational purposes only.) It has been observed that patients who smoke cigarettes during may have a slightly increased risk of having a false positive PALLAVI screen for Down Syndrome or trisomy 18. If you have questions concerning this report: For clinical consultation, call ; For technical questions, call ext [phone]; For recalculations, fax to [phone]. 58 For additional information, please refer to http://[employer]/faq/FAQ91 (This link is being provided for informational/educational purposes only.) It has been observed that patients who smoke cigarettes during may have a slightly increased risk of having a false positive PALLAVI screen for Down Syndrome or trisomy 18. If you have questions concerning this report: For clinical consultation, call ; For technical questions, call ext [phone]; For recalculations, fax to [phone]. 59 For additional information, please refer to http://[employer]/faq/FAQ91 (This link is being provided for informational/educational purposes only.) It has been observed that patients who smoke cigarettes during may have a slightly increased risk of having a false positive PALLAVI screen for Down Syndrome or trisomy 18. If you have questions concerning this report: For clinical consultation, call ; For technical questions, call ext [phone]; For recalculations, fax to [phone]. 60 For additional information, please refer to http://[employer]/faq/FAQ91 (This link is being provided for informational/educational purposes only.) It has been observed that patients who smoke cigarettes during may have a slightly increased risk of having a false positive PALLAVI screen for Down Syndrome or trisomy 18. If you have questions concerning this report: For clinical consultation, call ; For technical questions, call ext [phone]; For recalculations, fax to [phone]. 61 For additional information, please refer to http://[employer]/faq/FAQ91 (This link is being provided for informational/educational purposes only.) It has been observed that patients who smoke cigarettes during may have a slightly increased risk of having a false positive PALLAVI screen for Down Syndrome or trisomy 18. If you have questions concerning this report: For clinical consultation, call ; For technical questions, call ext [phone]; For recalculations, fax to [phone]. 62 For additional information, please refer to http://[employer]/faq/FAQ91 (This link is being provided for informational/educational purposes only.) It has been observed that patients who smoke cigarettes during may have a slightly increased risk of having a false positive PALLAVI screen for Down Syndrome or trisomy 18. If you have questions concerning this report: For clinical consultation, call ; For technical questions, call ext [phone]; For recalculations, fax to [phone]. 63 For additional information, please refer to http://[employer]/faq/FAQ91 (This link is being provided for informational/educational purposes only.) It has been observed that patients who smoke cigarettes during may have a slightly increased risk of having a false positive PALLAVI screen for Down Syndrome or trisomy 18. If you have questions concerning this report: For clinical consultation, call ; For technical questions, call ext [phone]; For recalculations, fax to [phone]. 64 For additional information, please refer to http://[employer]it/faq/FAQ91 (This link is being provided for informational/educational purposes only.) It has been observed that patients who smoke cigarettes during may have a slightly increased risk of having a false positive PALLAVI screen for Down Syndrome or trisomy 18. If you have questions concerning this report: For clinical consultation, call ; For technical questions, call ext [phone]; For recalculations, fax to [phone]. 65 For additional information, please refer to http://[employer]/faq/FAQ91 (This link is being provided for informational/educational purposes only.) It has been observed that patients who smoke cigarettes during may have a slightly increased risk of having a false positive PALLAVI screen for Down Syndrome or trisomy 18. If you have questions concerning this report: For clinical consultation, call ; For technical questions, call ext [phone]; For recalculations, fax to [phone]. 66 For additional information, please refer to http://[facility]/faq/FAQ91 (This link is being provided for informational/educational purposes only.) It has been observed that patients who smoke cigarettes during may have a slightly increased risk of having a false positive APLLAVI screen for Down Syndrome or trisomy 18. If you have questions concerning this report: For clinical consultation, call ; For technical questions, call ext [phone]; For recalculations, fax to [phone]. 67 For additional information, please refer to http://[facility]/faq/FAQ91 (This link is being provided for informational/educational purposes only.) It has been observed that patients who smoke cigarettes during may have a slightly increased risk of having a false positive PALLAVI screen for Down Syndrome or trisomy 18. If you have questions concerning this report: For clinical consultation, call ; For technical questions, call ext [phone]; For recalculations, fax to [phone]. 68 For additional information, please refer to http://[employer]/faq/FAQ91 (This link is being provided for informational/educational purposes only.) It has been observed that patients who smoke cigarettes during may have a slightly increased risk of having a false positive PALLAVI screen for Down Syndrome or trisomy 18. If you have questions concerning this report: For clinical consultation, call ; For technical questions, call ext [phone]; For recalculations, fax to [phone]. 69 For additional information, please refer to http://[employer]/faq/FAQ91 (This link is being provided for informational/educational purposes only.) It has been observed that patients who smoke cigarettes during may have a slightly increased risk of having a false positive PALLAVI screen for Down Syndrome or trisomy 18. If you have questions concerning this report: For clinical consultation, call ; For technical questions, call ext [phone]; For recalculations, fax to [phone]. 70 For additional information, please refer to http://[employer]/faq/FAQ91 (This link is being provided for informational/educational purposes only.) It has been observed that patients who smoke cigarettes during may have a slightly increased risk of having a false positive PALLAVI screen for Down Syndrome or trisomy 18. If you have questions concerning this report: For clinical consultation, call ; For technical questions, call ext [phone]; For recalculations, fax to [phone]. 71 SEE RESULT BELOW Name: MICHAEL JONES : [address]: Jennifer Ayers MD Acct: [id number] Unit: [id number] AGE: 28 Location: [facility] Re03/06/19 SEX: F Status: REG REF SPEC: [id number] MARYAM: 03/06/19-1408 [facility] DR: Jennifer Ayers MD REQ: [id number] RECD: 03/07/19-1241 STATUS: TOBI CARVAJAL DR: Nikki Primary Care Phys,NOP _ ORDERED: TP IMAGE ANALYS COMMENTS: [id number] FINAL DIAGNOSIS Negative for Intraepithelial lesion or Malignancy SPECIMEN(S) RECEIVED A. Ectocervical/Endocervical CYTOLOGY ADEQUACY Specimen Adequacy: Satisfactory of evaluation Transformation zone component not identified CYTOLOGY PATIENT INFORMATION Patient Information: HPV: Thin Layer Pap Test w/reflex to high risk HPV RNA testing when ASCUS Actual Specimen Date: 03/06/19 Last Menstrual Date: 12/03/18 Signed by and Reported on: ABEL Burk(ASCP) 0946 This Pap test was evaluated with the assistance of the [employer] Test Imaging System. Due to cytologic findings at the motorcycle subassembly repairer microscope, comprehensive manual rescreening by a Pin Drafter Operator may be required. The Pap Smear is a screening test designed to aid in the detection of premalignant and malignant conditions of the uterine cervix. It is not a diagnostic procedure and should not be used as the sole means of detecting cervical cancer. Both false- positive and false- negative reports do occur. Depending on your risk status, a Pap smear should be obtained and evaluated every 1-3 years. END OF REPORT DEPARTMENT OF PATHOLOGY, [address] [place] [address] Neville Mccray M.D. Director [facility] # [id number] 72 SEE RESULT BELOW Name: MICHAEL JONES : [address]: Jennifer Ayers MD Acct: [id number] Unit: [id number] AGE: 28 Location: [facility] Re03/06/19 SEX: F Status: REG REF SPEC: [id number] MARYAM: 03/06/19-[address]: Jennifer Ayers MD REQ: [id number] RECD: 03/06/195126 STATUS: COMP _ SOURCE: URINE SPDESC: ORDERED: Urine Culture COMMENTS: [id number] Urine Source: Random Procedure Result Reported Site Urine Culture Final 03/07/19- 1622 ML No Growth (<1,000 CFU/mL) * [facility] - Main Lab . END OF REPORT DEPARTMENT OF PATHOLOGY, [address] [place] [address] Neville Mccray M.D. Director [facility] # [id number] Procedures Date Code Description Status 04/30/2019 70939 Echography Uterus Complete Completed 03/06/2019 72690 Nuchal Translucency Ultrasound /First Gestation Completed Medical Devices Description No Information Available [...] third trimester 08/05/2019 Z23 Encounter for immunization Shamar Cormier MD 07/21/2019 Z34.83 Encounter for supervision of other normal Cassandra Garcia JR , DO , third trimester 07/02/2019 Z34.83 Encounter for supervision of other normal Leno Hayes M.D. , third trimester 06/17/2019 Z36.9 Encounter for screening, Blanca Xiong MD unspecified 06/17/2019 Z36.9 Encounter for screening, Laboratory unspecified 06/17/2019 Z34.82 Encounter for supervision of other normal Leno Hayes M.D. , second trimester 05/28/2019 Z34.02 Encounter for supervision of normal first Cassandra Garcia JR , DO , second trimester 04/30/2019 Z36.3 Encounter for screening for Shamar Cormier MD malformations 04/30/2019 Z34.02 Encounter for supervision of normal first Shamar Cormier MD , second trimester 04/30/2019 Z36.3 Encounter for screening for Ultrasounds malformations 04/02/2019 Z36.9 Encounter for screening, Leno Hayes M.D. unspecified 04/02/2019 Z36.9 Encounter for screening, Laboratory unspecified 04/02/2019 Z34.02 Encounter for supervision of normal first Cassandra Garcia JR, DO , second trimester 04/02/2019 Z23 Encounter for immunization Cassandra Garcia JR, DO 03/06/2019 Z36.9 Encounter for screening, Leno Hayes M.D. unspecified 03/06/2019 Z14.8 Genetic carrier of other disease Leno Hayes M.D. 03/06/2019 Z36.9 Encounter for screening, Laboratory unspecified 03/06/2019 Z36.3 Encounter for screening for Leno Hayes M.D. malformations 03/06/2019 Z34.01 Encounter for supervision of normal first Jennifer Ayers MD , first trimester 03/06/2019 Z36.3 Encounter for screening for Ultrasounds malformations Plan of Treatment Future Appointment(s):09/10/2019 11:00 am - Cassandra Garcia JR, DO at [facility] Functional Status Description No Information Available Mental Status Description No Information Available Referrals Description No Information Available
--- OUTSIDE RECORDS SUMMARY | 2019-09-19 16:25 | XMS REPORT | Continuity of Care Document ---
:1990 External Reference #:[id number] Author Name Shamar Cormier MD (transmitted by agent of provider Renetta Strong) Address [address] [place] [address] Problems Description No Information Available Social History [...] 1 by mouth twice Unknown a day [id number] Tablets Immunizations CPT Code Status Date Vaccine Lot # [id number] Given 08/05/2019 Tetnus, Diptheria Toxoids And Acellular Pertussis, [id number] PT > 7Yrs Old [address] Given 04/02/2019 Influenza Vaccine Quadrivalent Preser/Antibiotic 138211 Free Im Use Vital Signs Date Vital Result Comment 02/14/2019 8:15am BP Systolic 94 mmHg BP Diastolic 62 mmHg Height 63.75 inches 5'3.75" Weight 116.00 lb BMI (Body Mass Index) 20.1 kg/m2 Last Menstrual Period [id number] Results Test Acquired Date Facility Test Result H/L Range Note Laboratory test 08/19/2019 [facility] Genital For SEE RESULT 1 [place] [address] GRP B Strep BELOW [phone] Only Laboratory test 06/17/2019 [facility] Glucose 1 HR 116 mg/dL Normal 70-160 2 [place] [address] Post Prandial [phone] CBC With No 06/17/2019 [facility] White Blood 8.2 Normal 3.5- 10.8 [place] [address] Count 10^3/uL [phone] Red Blood Count 3.24 10^6/uL Low 3.70-4.87 Hemoglobin 11.2 g/dL Low 12.0-16.0 Hematocrit 32 % Low 35-47 Mean Corpuscular Volume 99 fL High 80-97 Mean Corpuscular Hemoglobin 35 pg High 27-31 Mean Corpuscular HGB Conc 35 g/dL Normal 31-36 Red Cell Distribution Width 13 % Normal 10-15 Platelet Count 215 10^3/uL Normal 150-450 Mean Platelet Volume 8.6 fL Normal 7.4-10.4 Drug Screen 04/30/2019 [facility] Urine None Detected [place] [address] Hydrocodone [facility] [phone] Screen Urine Oxycodone Screen None Detected None [...] 3 Test In Question- Missing Required 04/04/2019 [email or web address] Comment (SEE NOTE) 4 Info Missing Info: [id number] INTE <SEE NOTE> 5 Comment (SEE NOTE) 6 Laboratory test 04/04/2019 [email or web address] Enhanced PDF Report SEE IMAGE finding [id number] Urine Drug Comp 20 04/02/2019 [facility] Urine Amphetamine Negative ng/mL 7 [place] [address] [phone] Urine Barbiturates Negative ng/mL 8 Urine Benzodiazepines Negative ng/mL 9 Urine Cocaine Negative ng/mL 10 Urine Phencyclidine Negative ng/mL Cutoff: 25 Urine Tetrahydrocannabinol Negative ng/mL Cutoff: 50 11 Creatinine, Urine 114.8 mg/dL Specific [place] 1.012 pH 6.4 Oxidants Negative 12 Adulterants Comment Normal Codeine, Ur Not Detected ng/mL Cutoff: 25 13 Sghsjuu-5-ivgv-glucuronide, Ur Not Detected ng/mL 14 Morphine, Ur Not Detected ng/mL Cutoff: 25 15 Nmxnsnda-3-hpte-glucuronide, U Not Detected ng/mL 16 6-monoacetylmorphine, Ur Not Detected ng/mL Cutoff: 25 17 Hydrocodone, Ur Not Detected ng/mL Cutoff: 25 18 Norhydrocodone, Ur Not Detected ng/mL Cutoff: 25 19 Dihydrocodeine, Ur Not Detected ng/mL Cutoff: 25 20 Hydromorphone, Ur Not Detected ng/mL Cutoff: 25 21 Hitjozchpvoug4npieottswihnqvt Not Detected ng/mL 22 Oxycodone, Ur Not Detected ng/mL Cutoff: 25 23 Noroxycodone, Ur Not Detected ng/mL Cutoff: 25 24 Oxymorphone, Ur Not Detected ng/mL Cutoff: 25 25 Rsnyipbrcvd-4-vmyf-glucuronide Not Detected ng/mL 26 Noroxymorphone, Ur Not Detected ng/mL Cutoff: 25 27 Fentanyl, Ur Not Detected ng/mL Cutoff: 2 28 Norfentanyl, Ur Not Detected ng/mL Cutoff: 2 29 Meperidine, Ur Not Detected ng/mL Cutoff: 25 30 Normeperidine, Ur Not Detected ng/mL Cutoff: 25 31 Naloxone, Ur Not Detected ng/mL Cutoff: 25 32 Omxdgywa-9-lpbp-glucuronide, U Not Detected ng/mL 33 Methadone, Ur [...] Ur Not Detected ng/mL Cutoff: 50 41 Qudmjrftdf-chky-qlddiflibtw, U Not Detected ng/mL 42 Buprenorphine, Ur [...] Physician Phone NOT GIVEN Referring Physician Npi [phone] Specimen # from Part 1 [id number] Date of 1990 Collection Date 04/01/2019 Maternal Weight 116 lbs Est'd Date of Delivery 09/09/2019 Mother's Ethnic Origin Insulin Depend Diabetic NO Repeat Specimen NO Number of Fetuses 1 Hx Of Neural Tube Defects NO Cigarette smoker NOT GIVEN 52 Laboratory test finding 04/01/2019 [facility] Enhanced PDF Report SEE IMAGE [id number] 1 SEE RESULT BELOW Name: KARISSA JONES : [address]: Leno Hayes MD Acct: [id number] Unit: [id number] AGE: 28 Location: [facility] Re08/19/19 SEX: F Status: REG REF SPEC: [id number] MARYAM: 08/19/19-[address]: Leno Hayes MD REQ: [id number] RECD: 08/19/193405 STATUS: COMP _ SOURCE: CER/VAG/RE SPDESC: ORDERED: Maura Almeida COMMENTS: [id number] QUERIES: Is Patient Penicillin Allergic? N Is patient penicillin allergic and/or sensitivities needed? N Provider Requisition # C77#[id number]_ Procedure Result Reported Site Group B Strep [...] resistant strains have not been recognized. (CLSI R658-E97;p.66) Positive isolates will be saved for one week. Please call the Microbiology Laboratory if further susceptibility testing is needed. * [facility] - Main Lab . END OF REPORT DEPARTMENT OF PATHOLOGY, [address] [place] [address] Neville Mccray M.D. Director [facility] # [id number] 2 [id number] The specimen was tested at the [...] below due to missing required information. 5 [id number] [employer] PT2(GA Draw Date: 6 To prevent further delays in testing, please fax back your resolution to [phone] or contact us immediately at . NO COLLECTION DATE RECEIVED. WE HAVE USED THE DATE THE SPECIMEN WAS RECEIVED BY THIS LABORATORY THE COLLECTION DATE. IF THIS IS INCORRECT, PLEASE CONTACT CLIENT SERVICES. PHONE NUMBER: [phone] 7 REFERENCE VALUE Cutoff: 500 8 REFERENCE VALUE Cutoff: 200 9 REFERENCE VALUE Cutoff: 100 10 REFERENCE VALUE Cutoff: 150 11 ADDITIONAL INFORMATION This report is intended for use in clinical monitoring or management of patients. It is not intended for use in employment-related testing. Test Performed by: [facility] [address] [place] [address] Plant Associate: Mushtaq Chang M.D. Ph.D.; CLIA# [id number] 12 REFERENCE VALUE Cutoff: 200 mg/L 13 Tylenol 3 14 Metabolite of codeine REFERENCE VALUE Cutoff: 100 15 Shiela Contreras, MS Contin; Also a minor metabolite (10%) of codeine and can be seen in low concentrations (<2,000 ng/mL) with poppy seed ingestion. 16 Metabolite of morphine REFERENCE VALUE Cutoff: 100 17 Metabolite of heroin 18 Lortab, [place], Vicodin; Also a very minor metabolite of [...] developed and its performance characteristics determined by [facility] in a manner consistent with CLIA requirements. [...] of this test [facility] been [facility] [place]. This test should not be used [...] technique. Interpretation reviewed by: Dorothy Mckeon, Ph.D., [facility]. 52 This is a screening test, not [...] . For additional information, please refer to http://education.[employer].farmbuy/faq/FAQ93 (This link is being provided for informational/educational purposes only.) Procedures Date Code Description Status 09/09/2019 76957 Obstetric Care Routine Completed 04/30/2019 72786 Echography Uterus Complete Completed Medical Devices Description No Information Available Encounters Description No Information Available Assessments Date Code Description Provider 09/09/2019 O80 Encounter for full-term uncomplicated Shamar Cormier MD delivery 09/09/2019 Z37.0 Single live Shamar Cormier MD 09/09/2019 Z39.0 Encounter for care and examination of mother Shamar Cormier MD immediately after delivery 09/03/2019 Z34.03 Encounter for supervision of normal [...] Cassandra Lara JR, DO Plan of Treatment No Information Available Functional Status Description No Information Available Mental Status Description No Information Available Referrals Description No Information Available
[2019-09-19 17:29] VITALS: BP 108/79
== END 2019-09-19 17:28 | disposition home or self-care (01) ==
LOC: ED 15:20
DX: O90.0 Disruption of cesarean delivery wound (principal); N93.9 Abnormal uterine and vaginal bleeding, unspecified; S30.1XXA Contusion of abdominal wall, initial encounter; Z79.899 Other long term (current) drug therapy
CPT/HCPCS: 36415; 80048; 85025; 99283